=== PATIENT | female | born 1970 | race African-American/Black ===

== ENCOUNTER 2019-10-26 06:30 | Day surgery (SDC) | payer BC ==
[~2019-10-26] VITALS: Ht 154.9 cm; Wt 42.2 kg
[2019-10-26 07:19] LABS: HCG,QUAL RESULT NEGATIVE (NEGATIVE)
[2019-10-26] MEDS ORDERED: PROPOFOL 200MG/ 20ML VIAL (DIPRIVAN) IV ONE (09:03)
[2019-10-26] MEDS ORDERED: MIDAZOLAM HCL 5 MG/5 ML VIAL IVP ONE (09:03)
[2019-10-26] MEDS ORDERED: METOPROLOL TARTRATE 5 MG/5 ML VIAL IVP ONE (09:03)
[2019-10-26] MEDS ORDERED: LR 1,000 ML IV.SOLN IV ONE (09:03)
[2019-10-26] MEDS ORDERED: GLYCOPYRROLATE 0.2 MG/ML VIAL IJ ONE (09:03)
[2019-10-26] MEDS ORDERED: ROCURONIUM BROMIDE 10 MG/ML (ZEMURON) IV ONE (09:03)
[2019-10-26] MEDS ORDERED: NS 1000 ML IV.SOLN IV ONE (09:03)
[2019-10-26] MEDS ORDERED: NS IRRIG SOLN 1000 ML IR ONE (09:03)
[2019-10-26] MEDS ORDERED: NEOSTIGMINE METHYLSULFATE 1 MG/ML, 10 ML VIAL IVP ONE (09:03)
[2019-10-26] MEDS ORDERED: ONDANSETRON HCL 4 MG/2 ML VIAL IVP ONE ×2 (09:03)
[2019-10-26] MEDS ORDERED: DEXAMETHASONE SOD PHOSPHATE 4 MG/ML VIAL IVP ONE (09:03)
[2019-10-26] MEDS ORDERED: ISOFLURANE 15 MIN GAS INH ONE (09:03)
[2019-10-26] MEDS ORDERED: fentaNYL CITRATE/PF 100 MCG/2 ML AMP IVP ONE (09:03)
[2019-10-26] MEDS ORDERED: BUPIVACAINE /EPINEPHRINE/PF 0.25% 30 ML VIAL INJ ONE (09:03)
[2019-10-26] MEDS ORDERED: LR 1,000 ML IV ONE (09:49)
[2019-10-26] MEDS ORDERED: MORPHINE 4 MG/ML INJ. SYRINGE IVP PRN (10:00)
[2019-10-26] MEDS ORDERED: HYDROmorphone 1 MG INJ. 1 MG/ML AMPUL IVP PRN (10:00)
[2019-10-26] MEDS ORDERED: KETOROLAC TROMETHAMINE 30 MG VIAL IM PRN (10:00)
[2019-10-26] MEDS ORDERED: MIDAZOLAM HCL 5 MG/5 ML VIAL IVP PRN (10:00)
[2019-10-26] MEDS ORDERED: ONDANSETRON HCL 4 MG/2 ML VIAL IVP PRN (10:00)
[2019-10-26] MEDS ORDERED: HYDROmorphone 1 MG INJ. 1 MG/ML AMPUL ONE ×2 (11:29→11:46)
[2019-10-26] MEDS ORDERED: KETOROLAC TROMETHAMINE 30 MG VIAL ONE (15:09)
[2019-10-26 15:20] VITALS: BP_SYST 118
== END 2019-10-26 17:15 | disposition home or self-care (01) ==
LOC: SDS 06:30 → SMU 06:30 → SDS 17:15
PROVIDERS: ATTEND Obstetrics & Gynecology
DX: N83.201 Unspecified ovarian cyst, right side (principal); N73.6 Female pelvic peritoneal adhesions (postinfective); N80.9 Endometriosis, unspecified; F31.9 Bipolar disorder, unspecified; Z88.0 Allergy status to penicillin; Z98.51 Tubal ligation status; F17.200 Nicotine dependence, unspecified, uncomplicated; Z88.8 Allergy status to other drugs, medicaments and biological substances; Z90.89 Acquired absence of other organs; Z80.41 Family history of malignant neoplasm of ovary
CPT/HCPCS: 36415; 58661; 84703; 86886; 86900; 86901; C1727; J1100; J1170; J1885; J2250; J2405; J2704; J2710; J3010; J3490 ×3; J7030; J7120